=== PATIENT | male | born 2000 | race Hispanic/Latino ===

== ENCOUNTER 2018-07-08 19:47 | Emergency (ER) | payer OTHER | END 2018-07-08 21:00 | disposition home or self-care (01) | LOC: M ED 19:47 | DX: Z04.1 Encounter for examination and observation following transport accident (principal); J45.909 Unspecified asthma, uncomplicated; Z72.0 Tobacco use | CPT/HCPCS: 99283 ==

== ENCOUNTER → 2018-09-05 | Outpatient (CLI) | payer OTHER ==
[~2018-09-05] MED LIST: CONRAY-43 43% 50ML VIAL (Q9960) As Ordered; PROHANCE 279.3MG/ML 5ML VIAL (A9576) As Ordered
== END ==
LOC: M RADPRO 06:21
DX: S43.431A Superior glenoid labrum lesion of right shoulder, initial encounter (principal); X58.XXXA Exposure to other specified factors, initial encounter; Y92.89 Other specified places as the place of occurrence of the external cause; M75.81 Other shoulder lesions, right shoulder
CPT/HCPCS: 23350

== ENCOUNTER → 2019-05-08 | Outpatient (CLI) | payer OTHER ==
[~2019-05-08] MED LIST changes: -CONRAY-43 43% 50ML VIAL (Q9960) As Ordered; +METHACHOLINE KIT (J7674) INH ONE; -PROHANCE 279.3MG/ML 5ML VIAL (A9576) As Ordered; +VENTAER INH
--- NOTE | 2019-05-08 10:32 | PFTRPT ---
Site: [facility], [address] [place] [address], [id number] ID: [id number] Name: PEDRO RAMOS Visit Date: 05/08/2019 Second ID: [id number] Referring Doctor: Benjamin Cruz Reviewing Doctor: Denver Herrera MD Professor Of Forest Planning: Justino CLINE RRT Age: 18 : 2000 Sex: Male Race: <Unspecified> Height: 67.00 Inches Weight: 125.00 Lbs BSA: 1.66 Order IDs: [id number] Requested Test(s): <RESP-PFT.DLCO> Diagnosis: Asthma test meet the ATS standards for acceptability and repeatability. Pt was given four puffs of albuterol for postbronchodilator. Review Status: Not Reviewed Pre-Bronch Post-Bronch Pred Actual %Pred Actual %Chng SPIROMETRY FVC (L) 5.10 4.40 86 4.47 1 FEV1 (L) 4.29 2.91 67 3.45 18 FEV1/FVC (%) 84 66 78 77 16 FEF 25% (L/sec) 7.51 4.64 61 5.94 28 FEF 50% (L/sec) 5.39 2.10 39 3.23 53 FEF 75% (L/sec) 2.13 0.97 45 1.49 53 FEF 25-75% (L/sec) 4.65 1.88 40 2.87 52 FEF Max (L/sec) 9.44 6.87 72 7.25 5 FIVC (L) 4.01 3.13 -22 FIF 50% (L/sec) 5.74 7.07 123 8.09 14 FIF Max (L/sec) 7.11 8.20 15 MVV (L/min) 179 84 46 Expiratory Time (sec) 5.79 6.14 5 Back Extrap Vol (L) 0.09 0.10 8 Time To FEFmax (sec) 0.079 0.113 43 LUNG VOLUMES SVC (L) 4.99 4.64 92 IC (L) 3.33 3.30 98 ERV (L) 1.66 1.34 80 TGV (L) 2.93 3.18 108 RV (Pleth) (L) 1.27 1.84 145 TLC (Pleth) (L) 6.26 6.48 103 RV/TLC (Pleth) (%) 21 28 135 DIFFUSION DLCOunc (ml/min/mmHg) 36.14 30.59 84 DL/VA (ml/min/mmHg/L) 5.77 5.07 87 VA (L) 6.26 6.04 96 BHT (sec) 9.33 IVC (L) 4.50 TLC (SB) (L) 6.19 AIRWAYS RESISTANCE Raw (cmH2O/L/s) 1.45 1.98 136 Gaw (L/s/cmH2O) 1.03 0.52 50 sRaw (cmH2O*s) 4.76 7.57 159 sGaw (1/cmH2O*s) 0.20 0.14 69
== END ==
LOC: M CARPUL 09:46
PROVIDERS: ATTEND Emergency Medicine
DX: J45.901 Unspecified asthma with (acute) exacerbation (principal)

== ENCOUNTER 2020-03-16 03:30 | Emergency (ER) | payer OTHER ==
[~2020-03-16] VITALS: Ht 170.2 cm; Wt 54.5 kg
[~2020-03-16 03:30] MED LIST changes: -METHACHOLINE KIT (J7674) INH ONE
[2020-03-16] MEDS ORDERED: predniSONE 20 MG TAB PO ONE (05:00)
[2020-03-16] MEDS ORDERED: predniSONE 20 MG TAB As Ordered ONE (05:00)
[2020-03-16] MEDS ORDERED: PRED20TA PO (05:15)
[2020-03-16] MEDS: ALBUTEROL 90 MCG/ACT 8GM HFA INHALER INH ONE ×2 (05:24→05:45)
[2020-03-16 05:33] VITALS: BP 114/68
== END 2020-03-16 05:48 | disposition home or self-care (01) ==
LOC: M ED 03:30
DX: J45.901 Unspecified asthma with (acute) exacerbation (principal)